=== PATIENT | female | born 1990 | race Caucasian/White ===

== ENCOUNTER 2016-10-30 22:07 | Emergency (ER) | payer OTHER ==
[2016-10-30 22:18] VITALS: TEMP 98.1
[2016-10-30] MEDS ORDERED: HYDROcodone 7.5MG/APAP 325MG 1 EA TAB PO ONE (22:41)
[2016-10-30] MEDS ORDERED: LIDOCAINE VIS-MYLANTA 30 ML UD PO ONE (22:41)
[2016-10-30] MEDS ORDERED: SODIUM CHLORIDE 0.9% 1000ML 1,000 ML IVS ONE (23:31)
[2016-10-30] MEDS ORDERED: MAGNESIUM HYDROXIDE 30 ML UD PO ONE (23:31)
[2016-10-30] MEDS ORDERED: MAGNESIUM SULFATE PREMIX 2GM 2 GM in PREMIX BAG 1 BAG IVPB ONE (23:31)
[2016-10-30] MEDS ORDERED: MAGNESIUM SULFATE PREMIX 2GM 50 ML IVPB ONE (23:36)
--- NOTE | 2016-10-30 23:41 | ED.PDOC ---
History of Present Illness - General Chief Complaint: Abdominal Pain Stated Complaint: RUQ abd pain that radiates to back, onset yesterda Time Seen by Provider: 10/30/16 22:09 Source: patient Exam Limitations: no limitations - History of Present Illness Initial Comments: the patient is a 26-year-old female presenting to the emergency room secondary to abdominal pain in the epigastric and right upper quadrant area for the last 24 hours. No history of any gallbladder problems in the past. No abdominal surgeries in the past. No difficulties with urination. Sometimes the pain radiates through to her back. It is somewhat worse with movement. It is not necessarily worse with eating. She has had some nausea but no vomiting. She has had some mild diarrhea. Timing/Duration: 24 hours Severity: moderate Improving Factors: nothing Worsening Factors: nothing Associated Symptoms: denies symptoms Allergies/Adverse Reactions: Allergies Penicillin G Allergy (Verified 10/30/16 22:18) Home Medications: Ambulatory Orders Esomeprazole Magnesium [Nexium] 40 mg PO PRN 10/30/16 Review of Systems - Review of Systems Constitutional: States: malaise EENTM: States: no symptoms reported Respiratory: States: no symptoms reported Cardiology: States: no symptoms reported Gastrointestinal/Abdominal: States: see HPI Genitourinary: States: no symptoms reported Musculoskeletal: States: back pain Skin: States: no symptoms reported Neurological: States: no symptoms reported Endocrine: States: no symptoms reported All other Systems: No Change from Baseline Past Medical History (General) - Patient Medical History Hx Seizures: No Hx Stroke: No Hx Dementia: No Hx Asthma: Yes Hx of COPD: No Hx Cardiac Disorders: No Hx Congestive Heart Failure: No Hx Pacemaker: No Hx Hypertension: No Hx Thyroid Disease: No Hx Diabetes: No Hx Gastroesophageal Reflux: No Hx Renal Disease: No Hx Cancer: No Hx of HIV: No Hx Hepatitis C: No Hx MRSA: No Surgical History: no surgical history - Vaccination History Hx Tetanus, Diphtheria Vaccination: Yes Hx Influenza Vaccination: Yes Hx Pneumococcal Vaccination: No - Social History Hx Tobacco Use: No Hx Chewing Tobacco Use: No Hx Alcohol Use: No Hx Substance Use: No Hx Substance Use Treatment: No Hx Depression: Yes Feels Threatened In Home Enviroment: No Feels Threatened In a Relationship: No Hx Physical Abuse: No Hx Emotional Abuse: No Hx Suspected Abuse: No - Female History Hx Last Menstrual Period: 11/08/15 Patient : No Expected Date of Delivery:: 01/30/13 Family Medical History - Family History Mother Family History: No Known Living Status: Still Living Hx Family Asthma: Yes Hx Family Hypertension: Yes Hx Family Diabetes: Yes Physical Exam - Physical Exam General Appearance: Alert, No apparent distress Eye Exam: bilateral normal Ears, Nose, Throat: hearing grossly normal, normal ENT inspection Neck: full range of motion, supple Respiratory: chest non-tender, lungs clear, normal breath sounds, no respiratory distress, no accessory muscle use Cardiovascular/Chest: normal peripheral pulses, regular rate, rhythm, no edema Peripheral Pulses: radial,right: 2+, radial,left: 2+, dorsalis pedis,right: 2+, dorsalis pedis,left: 2+ Gastrointestinal/Abdominal: soft, other - discomfort palpation in the epigastric and right upper quadrant. No definite rebound. Rectal Exam: deferred Back Exam: normal inspection, no CVA tenderness Extremity: normal range of motion, non-tender, normal inspection, no pedal edema , normal capillary refill Neurologic: lining setter II-XII nml as tested, no motor/sensory deficits, alert, normal mood/affect, oriented x 3 Skin Exam: normal color Comments: Vital Signs - 24 hr 10/30/16 22:10 Temperature 98.1 F Pulse Rate [ 105 H monitor] Respiratory 16 Rate Blood Pressure 116/81 [Left Arm] O2 Sat by Pulse 96 Oximetry Progress - Progress Progress: 10/30/16 23:42 the patient is a 26-year-old female presenting to the emergency room secondary to abdominal pain for the last 24 hours. Lab work is reassuring and x -ray indicates significant constipation. No evidence of infection on the lab work and vital signs do not indicate significant infection at this time. The patient does have some dehydration and is receiving a liter of IV fluids. She does have a mildly low magnesium and is receiving a dose of IV magnesium. For the constipation the patient is receiving a dose of milk of magnesia. She needs to take MiraLAX daily for the next week. If her abdominal pain is not improving with treatment of the constipation, then a right upper quadrant ultrasound may be warranted. ER warnings were given for any worsening. She should follow-up with her primary care doctor around Tuesday for reevaluation. - Results/Orders Results/Orders: abdominal series shows a large amount of stool. No obstruction. No free air is obvious. Laboratory Results - last 24 hr 10/30/16 10/30/16 10/30/16 22:40 22:45 22:45 WBC 10.4 RBC 4.76 Hgb 11.3 L Hct 35.4 L MCV 74.4 L MCH 23.7 L MCHC 32.0 L RDW 14.7 H Plt Count 284 MPV 8.4 Absolute Neuts (auto) 6.30 Absolute Lymphs (auto) 3.00 Absolute Monos (auto) 0.70 Absolute Eos (auto) 0.40 Absolute Basos (auto) 0.00 Neutrophils % 60.9 Lymphocytes % 28.7 Monocytes % 6.5 Eosinophils % 3.5 Basophils % 0.4 Normal RBC Morphology 1+hypochromia PT INR PTT (SP) Sodium 142 Potassium 3.5 L Chloride 110 Carbon Dioxide 26 Anion Gap 9.5 L BUN 13 Creatinine 1.01 BUN/Creatinine Ratio 12.9 Random Glucose 108 H Serum Osmolality 283.8 Calcium 8.7 Magnesium Total Bilirubin 0.2 AST 14 ALT 16 Alkaline Phosphatase 60 Creatine Kinase 54 CK-MB (CK-2) 0.8 CK-MB (CK-2) % Not Reportable Troponin I < 0.02 Serum Total Protein 6.9 Albumin 3.7 Globulin 3.2 Albumin/Globulin Ratio 1.2 Amylase 59 Lipase Serum HCG, Qual Urine Color Yellow Urine Appearance Sl cloudy Urine pH 6.0 Ur Specific [place] >= 1.030 Urine Protein Trace Urine Glucose (UA) Negative Urine Ketones Negative Urine Blood Moderate H Urine Nitrite Negative Urine Bilirubin Negative Urine Urobilinogen 0.2 Ur Leukocyte Esterase Negative Urine RBC 1-3 Urine WBC 5-10 H Ur Epithelial Cells 20-30 Urine Bacteria 1+ Urine Mucus Small 10/30/16 10/30/16 10/30/16 22:45 22:45 22:45 WBC RBC Hgb Hct MCV MCH MCHC RDW Plt Count MPV Absolute Neuts (auto) Absolute Lymphs (auto) Absolute Monos (auto) Absolute Eos (auto) Absolute Basos (auto) Neutrophils % Lymphocytes % Monocytes % Eosinophils % Basophils % Normal RBC Morphology PT 10.5 INR 0.930 PTT (SP) 30.2 Sodium Potassium Chloride Carbon Dioxide Anion Gap BUN Creatinine BUN/Creatinine Ratio Random Glucose Serum Osmolality Calcium Magnesium 1.7 L Total Bilirubin AST ALT Alkaline Phosphatase Creatine Kinase CK-MB (CK-2) CK-MB (CK-2) % Troponin I Serum Total Protein Albumin Globulin Albumin/Globulin Ratio Amylase Lipase 26 Serum HCG, Qual Negative Urine Color Urine Appearance Urine pH Ur Specific [place] Urine Protein Urine Glucose (UA) Urine Ketones Urine Blood Urine Nitrite Urine Bilirubin Urine Urobilinogen Ur Leukocyte Esterase Urine RBC Urine WBC Ur Epithelial Cells Urine Bacteria Urine Mucus Departure - Departure Clinical Impression: Abdominal pain Qualifiers: Abdominal location: upper abdomen, unspecified Qualified Code(s): R10.10 - Upper abdominal pain, unspecified Constipation Qualifiers: Constipation type: unspecified constipation type Qualified Code(s): K59.00 - Constipation, unspecified Disposition: Discharge to Home or Self Care Condition: Fair Departure Forms: ED Discharge - Pt. Copy, Patient Portal Self Enrollment Instructions: DI for Constipation Diet: regular diet - high-fiber low-fat Activity: increase activity as tolerated Referrals: Sari Gavin SENIOR SOFTWARE MANAGER [Primary Care Provider] - 1-2 Weeks Home Medications: Ambulatory Orders Esomeprazole Magnesium [Nexium] 40 mg PO PRN 10/30/16 Additional Instructions: the patient is a 26-year-old female presenting to the emergency room secondary to abdominal pain for the last 24 hours. Lab work is reassuring and x -ray indicates significant constipation. No evidence of infection on the lab work and vital signs do not indicate significant infection at this time. The patient does have some dehydration and is receiving a liter of IV fluids. She does have a mildly low magnesium and is receiving a dose of IV magnesium. For the constipation the patient is receiving a dose of milk of magnesia. She needs to take MiraLAX daily for the next week. If her abdominal pain is not improving with treatment of the constipation, then a right upper quadrant ultrasound may be warranted. ER warnings were given for any worsening. She should follow-up with her primary care doctor around Tuesday for reevaluation.
--- NOTE | 2016-10-30 23:46 | RAD ---
EXAM DESCRIPTION: Abdomen Series CLINICAL HISTORY: ruq pain 30 hours COMPARISON: None FINDINGS: Frontal view of the chest and supine and upright images of the abdomen were submitted. Cardiac silhouette is within normal limits. There is no focal parenchymal or pleural disease. There is no free air in the abdomen. There is rotoscoliosis of the lumbar spine. There is no evidence of bowel obstruction. IMPRESSION: No acute abnormalities. Electronically signed by: Duglas Cohen MD 10/30/2016 11:44 PM CDT
[2016-10-31 01:57] VITALS: BP 110/80; O2SAT 98
== END 2016-10-31 01:57 | disposition home or self-care (01) ==
LOC: ER 22:07
DX: K59.00 Constipation, unspecified (principal); R10.11 Right upper quadrant pain; E86.0 Dehydration
CPT/HCPCS: 36415; 74020; 80053; 81001; 82150; 82550; 82553; 83690; 83735; 84484; 84703; 85025; 85610; 85730; J3475; J7030

== ENCOUNTER 2017-01-14 01:41 | Emergency (ER) | payer SELFPAY ==
[2017-01-14] MEDS ORDERED: KETOROLAC TROMETHAMINE INJ 30 MG/ML VIAL IM ONE (02:08)
--- NOTE | 2017-01-14 02:35 | RAD ---
Procedure: XR ABDOMEN 2 VIEWS SUPINE ERECT Exam Date: 01/14/2017 Ordering Provider: Edgar Gómez Clinical Indication: ruq pain Comparison: 10/30/2016 Findings: There is no small or large bowel distention. There is no pneumoperitoneum. There are no suspicious calcifications. There is no acute skeletal abnormality. Rotoscoliosis. Impression: 1. No acute findings. Electronically signed by: Vinh Medina MD 01/14/2017 2:34 AM FINGERNAIL TECHNICIAN
[2017-01-14] MEDS ORDERED: SODIUM CHLORIDE 0.9% 1000ML 1,000 ML IVS ONE (03:26)
--- NOTE | 2017-01-14 04:01 | CT ---
EXAM DESCRIPTION: Abdomen/Pelvis w/Contrast CLINICAL HISTORY: 26 years Female, epigastric/ruq pain with microcytosis COMPARISON: CT abdomen 02/23/2015 TECHNIQUE: Contiguous axial CT images of the abdomen and pelvis were acquired after the administration of intravenous contrast. Coronal and sagittal reformatted images are provided. This exam was performed according to our departmental dose-optimization program which includes use of Automated Exposure Control, adjustment of the mA and/or kV according to patient size and/or use of iterative reconstruction technique. FINDINGS: Chest base: Tree-in-bud opacities and focal airspace consolidation is seen within the lingula. Lung bases are otherwise unremarkable. Liver: Unremarkable. Gallbladder: Multiple stones within the gallbladder. Unremarkable common bile duct. Spleen: Unremarkable. Adrenals: Unremarkable. Pancreas: Unremarkable. Right Kidney: Tiny subcentimeter hypoattenuating lesion within the right kidney, too small to characterize, likely renal cyst. There is a tiny punctate stone within the lower pole of the right kidney. Left Kidney: No renal stones or hydronephrosis. Aorta and branch vessels: Unremarkable. Lymph nodes: No lymphadenopathy. Bowels: No obstruction. Colon: No wall thickening. Appendix: Normal. Peritoneum: No free air or free fluid. Pelvic organs: Unremarkable. Bladder: Unremarkable. Bones and soft tissues: No acute osseous or soft tissue abnormalities. Subcutaneous emphysema within the right gluteal region, likely injection related. IMPRESSION: Cholelithiasis without choledocholithiasis. Lingular airspace disease concerning for endobronchial infection/pneumonia. Punctate nonobstructing right renal stone. Electronically signed by: Kendall Lainez MD 01/14/2017 3:59 AM INSTRUCTOR CREELER
--- NOTE | 2017-01-14 04:38 | RAD ---
Procedure: XR CHEST 2 VIEWS Exam Date: 01/14/2017 Ordering Provider: Edgar Gómez Clinical Indication: ruq pain, rll rales Comparison: 06/13/2008 Findings: Cardiomediastinal silhouette: Within normal limits Pulmonary vasculature : Unremarkable Aortic contour: Unremarkable Focal lung consolidation: Atelectasis and/or infiltrate in the lingula. Lungs are otherwise clear. Pleural effusion: None Pneumothorax: None Bones and soft tissues: Nonacute Impression: 1. Atelectasis and/or infiltrate in the lingula. Electronically signed by: Vinh Medina MD 01/14/2017 4:37 AM [facility]
[2017-01-14] MEDS ORDERED: cefTRIAXone SODIUM 1 GM in SODIUM CHL 0.9% 50ML MIN-BAG+ 50 ML IVPB ONE (04:44)
[2017-01-14] MEDS ORDERED: AZITHROMYCIN IV 500 MG in SODIUM CHLORIDE 0.9% 250ML 250 ML IVPB ONE (04:46)
--- NOTE | 2017-01-14 04:49 | ED.PDOC ---
History of Present Illness - General Source: patient Exam Limitations: no limitations - History of Present Illness Initial Comments: the patient is a 26-year-old female presenting to the emergency room secondary to right upper quadrant pain associated nausea and vomiting that started this morning. She did not vomit until she took some pain medications for it. Eating does make it worse. Movement does make it worse. She denies any fever. She denies any bowel or blood in her vomitus. She has had problems with constipation in the past and we did see her with a similar episode 3 months ago that seemed to respond to treatment for constipation. At that time there was no elevation in liver function tests were white blood cell count and the pain was a little more diffuse. Today the pain is really in the right upper quadrant.he patient did have a significant cough with some shortness of breath last week. Timing/Duration: 24 hours, intermittent Severity: moderate Improving Factors: nothing Worsening Factors: eating Associated Symptoms: cough, loss of appetite, malaise, nausea/vomiting <Edgar Gómez - Last Filed: 01/14/17 04:47> <Mihir Rodriguez - Last Filed: 01/14/17 10:38> - General Chief Complaint: Abdominal Pain Stated Complaint: abd pain Time Seen by Provider: 01/14/17 01:53 - History of Present Illness Allergies/Adverse Reactions: Allergies Penicillin G Allergy (Verified 10/30/16 22:18) Home Medications: Ambulatory Orders Esomeprazole Magnesium [Nexium] 40 mg PO PRN 10/30/16 Azithromycin 500 mg PO DAILY #5 tab 01/14/17 Famotidine 20 mg PO BID #60 tab 01/14/17 Ferrous Gluconate [Ferrotabs] 240 mg PO BID #120 tab 01/14/17 Review of Systems - Review of Systems Constitutional: States: malaise EENTM: States: no symptoms reported Respiratory: States: cough Cardiology: States: no symptoms reported Gastrointestinal/Abdominal: States: abdominal pain, nausea, vomiting Genitourinary: States: no symptoms reported Musculoskeletal: States: no symptoms reported Skin: States: no symptoms reported Neurological: States: no symptoms reported Endocrine: States: no symptoms reported All other Systems: No Change from Baseline <Edgar Gómez - Last Filed: 01/14/17 04:47> Past Medical History (General) - Patient Medical History Hx Seizures: No Hx Stroke: No Hx Dementia: No Hx Asthma: Yes Hx of COPD: No Hx Cardiac Disorders: No Hx Congestive Heart Failure: No Hx Pacemaker: No Hx Hypertension: No Hx Thyroid Disease: No Hx Diabetes: No Hx Gastroesophageal Reflux: No Hx Renal Disease: No Hx Cancer: No Hx of HIV: No Hx Hepatitis C: No Hx MRSA: No Surgical History: no surgical history - Vaccination History Hx Tetanus, Diphtheria Vaccination: Yes Hx Influenza Vaccination: Yes Hx Pneumococcal Vaccination: No - Social History Hx Tobacco Use: No Hx Chewing Tobacco Use: No Hx Alcohol Use: No Hx Substance Use: No Hx Substance Use Treatment: No Hx Depression: Yes Hx Physical Abuse: No Hx Emotional Abuse: No Hx Suspected Abuse: No - Female History Hx Last Menstrual Period: 11/08/15 Patient : No Expected Date of Delivery:: 01/30/13 <Edgar Gómez - Last Filed: 01/14/17 04:47> Family Medical History - Family History Mother Family History: No Known Living Status: Still Living Hx Family Asthma: Yes Hx Family Hypertension: Yes Hx Family Diabetes: Yes <Edagr Gómez - Last Filed: 01/14/17 04:47> Physical Exam - Physical Exam General Appearance: Alert, Anxious, Other - the patient is obviously hurting Eye Exam: bilateral normal Ears, Nose, Throat: hearing grossly normal, normal ENT inspection, normal pharynx Neck: full range of motion, supple, normal inspection Respiratory: chest non-tender, no respiratory distress, no accessory muscle use , rhonchi - right lower lobe primarily Cardiovascular/Chest: normal peripheral pulses, regular rate, rhythm, no edema Peripheral Pulses: radial,right: 2+, radial,left: 2+, dorsalis pedis,right: 2+, dorsalis pedis,left: 2+ Gastrointestinal/Abdominal: soft, other - the patient does havesignificant right upper quadrant discomfort to palpation with some guarding Rectal Exam: deferred Back Exam: normal inspection, no vertebral tenderness, other - the patient does have some right-sided costovertebral angle tenderness Extremity: normal range of motion, non-tender, normal inspection, no pedal edema , normal capillary refill Neurologic: gas charger II-XII nml as tested, no motor/sensory deficits, alert, oriented x 3 Skin Exam: normal color Comments: Vital Signs - 24 hr 1201/14/17 01/14/17 01:57 02:41 03:41 Temperature 98.6 F Pulse Rate [ 78 74 66 left] Respiratory 18 18 18 Rate Blood Pressure 133/85 124/76 119/74 [left] O2 Sat by Pulse 98 97 98 Oximetry <Edgar Gómez - Last Filed: 01/14/17 04:47> Progress - Progress Progress: 01/14/17 04:54 the patient is a 26-year-old female presenting to the emergency room with symptoms of right upper quadrant pain and associated nausea and vomiting. She also has a significant cough that is actually letting up since last week. The patient is found to have at least 2 different problems, possibly 3. The patient has a significant anemia that is likely iron deficiency anemia that seems to be getting worse over time based on her MCV. The patient will need outpatient testing for this including a complete iron panel and she will need to be set up for an upper endoscopy. It is possible that significant gastritis or duodenitis may be causing the iron deficiency and the pain seen here today. for this likelihood she will be placed on Pepcid twice daily for 1 month as well as be started on an oral iron supplement. Outpatient testing for Helicobacter pylori would be in line as well. The patient also has evidence of pneumonia on clinical exam and on the CT scan. She is being given a dose of Rocephin and azithromycin each here and we will plan at least on her being on azithromycin as an outpatient for the next 5 days. The patient is not oxygen dependent and does not need to be admitted for this small pneumonia at this time. The patient's current clinical condition is however highly suspicious for symptomatic gallbladder disease. For now I'm hydrating the patient and going to make the patient nothing by mouth with the exception of water for an ultrasound in the morning. I will plan on contacting Dr. Villalobos, our general surgeon in the morning to evaluate the patient for his opinion. CT scan does not indicate any common bile duct dilation nor are there an elevation of her liver function tests on the blood work. There is no pericholecystic fluid and no obvious gallbladder wall thickening on the CT scan either. However, location and clinical nature of the pain or highly suspicious for pain related to her significant gallstones as seen on the CT scan. She has received 1 dose of Toradol so far. We'll continue monitoring and obtain the above. - Results/Orders Results/Orders: Laboratory Results - last 24 hr 01/14/17 01/14/17 01/14/17 02:15 02:15 02:15 WBC 11.1 H RBC 5.27 Hgb 11.2 L Hct 36.1 MCV 68.6 L MCH 21.2 L MCHC 30.9 L RDW 16.8 H Plt Count 441 H MPV 8.6 Absolute Neuts (auto) 6.10 Absolute Lymphs (auto) 3.30 Absolute Monos (auto) 0.80 Absolute Eos (auto) 0.80 H Absolute Basos (auto) 0.10 Neutrophils % 55.2 Lymphocytes % 29.8 Monocytes % 7.3 Eosinophils % 7.1 H Basophils % 0.6 Normal RBC Morphology 4+microcytosis Sodium 140 Potassium 4.0 Chloride 107 Carbon Dioxide 27 Anion Gap 10.0 L BUN 10 Creatinine 0.60 BUN/Creatinine Ratio 16.7 Random Glucose 99 Serum Osmolality 278.5 Calcium 9.1 Total Bilirubin < 0.2 L AST 16 ALT 44 Alkaline Phosphatase 44 Serum Total Protein 7.2 Albumin 3.5 Globulin 3.7 H Albumin/Globulin Ratio 0.9 L Amylase 55 Lipase 23 Serum HCG, Qual Negative Urine Color Urine Appearance Urine pH Ur Specific [place] Urine Protein Urine Glucose (UA) Urine Ketones Urine Blood Urine Nitrite Urine Bilirubin Urine Urobilinogen Ur Leukocyte Esterase Urine RBC Urine WBC Ur Epithelial Cells Urine Bacteria 01/14/17 02:15 WBC RBC Hgb Hct MCV MCH MCHC RDW Plt Count MPV Absolute Neuts (auto) Absolute Lymphs (auto) Absolute Monos (auto) Absolute Eos (auto) Absolute Basos (auto) Neutrophils % Lymphocytes % Monocytes % Eosinophils % Basophils % Normal RBC Morphology Sodium Potassium Chloride Carbon Dioxide Anion Gap BUN Creatinine BUN/Creatinine Ratio Random Glucose Serum Osmolality Calcium Total Bilirubin AST ALT Alkaline Phosphatase Serum Total Protein Albumin Globulin Albumin/Globulin Ratio Amylase Lipase Serum HCG, Qual Urine Color Yellow Urine Appearance Clear Urine pH 6.5 Ur Specific [place] 1.015 Urine Protein Negative Urine Glucose (UA) Negative Urine Ketones Negative Urine Blood Small H Urine Nitrite Negative Urine Bilirubin Negative Urine Urobilinogen 0.2 Ur Leukocyte Esterase Small H Urine RBC 1-3 Urine WBC 3-5 H Ur Epithelial Cells 3-5 Urine Bacteria 1+ x-ray of abdomen shows a moderate amount of stool. No obstruction. Free air. Calcified stones are seen in the area of the gallbladder. CT scan of the abdomen and pelvis show a few small nonobstructing kidney stones. She does have significant gallbladder stones but does not appear to have any pericholecystic fluid or gallbladder wall thickening. The common bile duct is within normal limits. No other acute pathology is noted.she does have changes consistent with a small lingular pneumonia <Edgar Gómez L - Last Filed: 01/14/17 04:47> - EKG/XRAY/CT Comments: abdominal sono-acute calculus cholecystytis <Mihir Rodriguez R - Last Filed: 01/14/17 10:38> Departure <Edgar Gómez L - Last Filed: 01/14/17 04:47> - Departure Time of Disposition: 10:35 <Mihir Rodriguez - Last Filed: 01/14/17 10:38> - Departure Clinical Impression: Lingular pneumonia Abdominal pain Qualifiers: Abdominal location: right upper quadrant Qualified Code(s): R10.11 - Right upper quadrant pain Iron deficiency anemia Qualifiers: Iron deficiency anemia type: unspecified iron deficiency Qualified Code(s): D50.9 - Iron deficiency anemia, unspecified Cholecystitis, acute with cholelithiasis Qualifiers: Cholelithiasis location: gallbladder Biliary obstruction: without biliary obstruction Qualified Code(s): K80.00 - Calculus of gallbladder with acute cholecystitis without obstruction Disposition: Transfer to Hospital Condition: Fair Departure Forms: Patient Portal Self Enrollment Instructions: Pneumonia-Adult, DI for Iron Deficiency Anemia-Adult Referrals: Sari Gavin, [employer] CHOPPER HAND [Primary Care Provider] - 1-2 Weeks Prescriptions: Azithromycin 500 mg PO DAILY #5 tab Famotidine 20 mg PO BID #60 tab Ferrous Gluconate [Ferrotabs] 240 mg PO BID #120 tab Home Medications: Ambulatory Orders Esomeprazole Magnesium [Nexium] 40 mg PO PRN 10/30/16 Azithromycin 500 mg PO DAILY #5 tab 01/14/17 Famotidine 20 mg PO BID #60 tab 01/14/17 Ferrous Gluconate [Ferrotabs] 240 mg PO BID #120 tab 01/14/17 Transfer to Outside Facility - Transfer Information Accepting Provider:: Dr. Siddiqi-surgeon/Dr. Bertha Barriga -ER Md Accepting Facility: [facility] Reason for Transfer: required specialist not available <Mihir Rodriguez - Last Filed: 01/14/17 10:38>
[2017-01-14] MEDS ORDERED: cefTRIAXone SODIUM 1 GM VIAL ONE (04:54)
[2017-01-14] MEDS ORDERED: AZITHROMYCIN IV 500 MG VIAL IVPB ONE (04:55)
[2017-01-14] MEDS ORDERED: SODIUM CHLORIDE 0.9% 250ML 250 ML ONE (04:55)
[2017-01-14] MEDS ORDERED: SODIUM CHL 0.9% 50ML MIN-BAG+ 50 ML IVPB ONE (04:55)
[2017-01-14] MEDS ORDERED: levoFLOXacin 500MG IV 500 MG in PREMIX BAG 1 BAG IVPB ONE (07:39)
--- NOTE | 2017-01-14 10:03 | US ---
EXAM DESCRIPTION: Abdomen,Limited CLINICAL HISTORY: ruq pain, gallstones COMPARISON: CT abdomen pelvis January 14, 2017. TECHNIQUE: Routine sonographic images of the right upper quadrant of the abdomen were acquired and submitted for review. FINDINGS: Liver: Size- normal Echogenicity- normal Mass- none Bile ducts- no intrahepatic ductal dilatation is demonstrated. Common bile duct is normal seen to comment on. Gallbladder: Gallbladder wall thickening with pericholecystic fluid is present. Multiple gallstones are noted with the largest measuring 1.8 cm. Larger gallstone is nonmobile near the neck. Pancreas: head and body appear normal; tail obscured by bowel gas Right kidney: normal Aorta & Inferior vena cava: visualized portions appear normal Ascites: none IMPRESSION: Acute calculus cholecystitis. Electronically signed by: John Gonzalez MD 01/14/2017 10:02 AM [facility]
[2017-01-14] MEDS ORDERED: MORPHINE SULFATE INJ 10 MG/ML VIAL IV ONE (10:37)
[2017-01-14] MEDS ORDERED: SODIUM CHLORIDE 0.9% 1000ML 1,000 ML IVS PRN (10:46)
[2017-01-14 11:37] VITALS: BP 103/67; TEMP 97.9; O2SAT 97
== END 2017-01-14 11:50 | disposition short-term general hospital (02) ==
LOC: ER 01:41
DX: J18.8 Other pneumonia, unspecified organism (principal); D50.9 Iron deficiency anemia, unspecified; K80.00 Calculus of gallbladder with acute cholecystitis without obstruction; Z88.0 Allergy status to penicillin; Z88.8 Allergy status to other drugs, medicaments and biological substances
CPT/HCPCS: 36415; 71020; 74010; 74177; 76775; 80053; 81001; 82150; 83690; 84703; 85025; 87040; 87086; J0456; J0696; J1885; J7030; J7050

== ENCOUNTER 2017-10-25 11:33 | Emergency (ER) | payer SELFPAY ==
[2017-10-25] MEDS ORDERED: SODIUM CHLORIDE 0.9% 1000ML 1,000 ML IVS ONE (12:04)
[2017-10-25] MEDS ORDERED: ONDANSETRON ODT 8 MG TAB SL ONE (12:04)
--- NOTE | 2017-10-25 12:07 | ED.PDOC ---
History of Present Illness - General Chief Complaint: Abdominal Pain Stated Complaint: Abdominal discomfort, nausea/vomiting Time Seen by Provider: 10/25/17 12:03 Information Source: patient Exam Limitations: no limitations - History of Present Illness Initial Comments: patient is a 26-year-old at 20 weeks by stated URSZULA who presents for 1 day history of abdominal pain, nausea, vomiting, and diarrhea. Patient states she felt a little bit ill last night but had no nausea or vomiting. This morning at 1 AM she awoke with cramping of the entire abdominal cavity that came and went very similar to when she had contractions. She has no vaginal bleeding but had severe nausea and vomiting this morning as well as some loose stools. She has had some epigastric and right upper quadrant abdominal discomfort and pain as well. Patient denies any fever, chills, cough or cold symptoms. Her other 2 pregnancies as well as this one were unremarkable. She has no past history of hypertension, liver dysfunction, or preeclampsia. Patient states both babies were vaginally delivered at term. Patient has a past medical history significant only for cholecystectomy but no chronic medical disorders and she is taking her female vitamins. She is a smoke, drink , or take illicit substances. Good movement this morning is reported feel heart tones are 150s here in the emergency room. Abdominal Pain Onset Location: generalized abdomen Pain Radiation: no radiation Quality: moderate, cramping, waxing/waning Timing/Duration: 7-24 hours Improving Factors: nothing Worsening Factors: eating Associated Symptoms: diarrhea, nausea/vomiting Review of Systems - Review of Systems Constitutional: States: no symptoms reported, weakness. Denies: diaphoresis, fever EENTM: Denies: no symptoms reported, eye pain, ear pain, ear discharge, throat swelling Respiratory: States: no symptoms reported. Denies: cough, short of breath, wheezing Cardiology: States: no symptoms reported. Denies: chest pain, edema, palpitations Gastrointestinal/Abdominal: States: see HPI Genitourinary: Denies: no symptoms reported Musculoskeletal: Denies: no symptoms reported Past Medical History (General) - Patient Medical History Hx Seizures: No Hx Stroke: No Hx Dementia: No Hx Asthma: Yes Hx of COPD: No Hx Cardiac Disorders: No Hx Congestive Heart Failure: No Hx Pacemaker: No Hx Hypertension: No Hx Thyroid Disease: No Hx Diabetes: No Hx Gastroesophageal Reflux: No Hx Renal Disease: No Hx Cancer: No Hx of HIV: No Hx Hepatitis C: No Hx MRSA: No Surgical History: cholecystectomy - Vaccination History Hx Tetanus, Diphtheria Vaccination: Yes Hx Influenza Vaccination: Yes - 2016 Hx Pneumococcal Vaccination: No - Social History Hx Tobacco Use: Yes - Quit 2017 Hx Chewing Tobacco Use: No Hx Alcohol Use: No Hx Substance Use: No Hx Substance Use Treatment: No Hx Depression: Yes Hx Physical Abuse: No Hx Emotional Abuse: No Hx Suspected Abuse: No - Female History Patient is a Female of Child Bearing Age (10 -59 yrs old): Yes Hx Last Menstrual Period: 11/08/15 Patient : Yes Expected Date of Delivery:: 03/10/18 Family Medical History - Family History Mother Family History: No Known Living Status: Still Living Hx Family Asthma: Yes Hx Family Hypertension: Yes Hx Family Diabetes: Yes Physical Exam - Physical Exam General Appearance: Alert, Ill Appearing Eyes, Ears, Nose, Throat Exam: PERRL/EOMI, normal ENT inspection, TMs normal, pharynx normal, other - dry mucous membranes Neck: non-tender, full range of motion, supple, normal inspection Respiratory: chest non-tender, lungs clear, normal breath sounds, no respiratory distress Cardiovascular/Chest: normal peripheral pulses, regular rate, rhythm, no murmur Gastrointestinal/Abdominal: normal bowel sounds, soft, other - mildly tender to palpation diffusely with no guarding no rebound Back Exam: normal inspection Extremity: normal range of motion, non-tender Neurologic: alert, oriented x 3 Progress - Results/Orders Results/Orders: Laboratory Results WBC 14.7 K/mm3 (4.8-10.8) H 10/25/17 12:20 RBC 4.97 M/mm3 (4.20-5.40) 10/25/17 12:20 Hgb 11.9 gm/dL (12.0-16.0) L 10/25/17 12:20 Hct 36.6 % (36.0-47.0) 10/25/17 12:20 MCV 73.6 fl (81.0-99.0) L 10/25/17 12:20 MCH 23.9 pg (27.0-31.0) L 10/25/17 12:20 MCHC 32.6 g/dL (33.0-37.0) L 10/25/17 12:20 RDW 18.2 % (11.5-14.5) H 10/25/17 12:20 Plt Count 245 K/mm3 (130-400) 10/25/17 12:20 MPV 9.0 fl (7.40-10.4) 10/25/17 12:20 Absolute Neuts (auto) 12.90 K/uL (1.8-6.8) H 10/25/17 12:20 Absolute Lymphs (auto) 1.00 K/uL (1.0-3.4) 10/25/17 12:20 Absolute Monos (auto) 0.70 K/uL (0.2-0.8) 10/25/17 12:20 Absolute Eos (auto) 0.00 K/uL (0.0-0.4) 10/25/17 12:20 Absolute Basos (auto) 0.00 K/uL (0.0-0.1) 10/25/17 12:20 Neutrophils % 87.8 % (42.0-78.0) H 10/25/17 12:20 Lymphocytes % 7.0 % (20.0-50.0) L 10/25/17 12:20 Monocytes % 4.7 % (2.0-9.0) 10/25/17 12:20 Eosinophils % 0.2 % (1.0-5.0) L 10/25/17 12:20 Basophils % 0.3 % (0.0-2.0) 10/25/17 12:20 RBC Morphology 1+aniso 1+hypochromia Plts litzy adequate 10/25/17 12:20 RBC Morphology 1+aniso 1+hypochromia Plts litzy adequate 10/25/17 12:20 RBC Morphology 1+aniso 1+hypochromia Plts litzy adequate 10/25/17 12:20 Sodium 139 mmol/L (135-145) 10/25/17 12:20 Potassium 3.3 mmol/L (3.6-5.0) L 10/25/17 12:20 Chloride 105 mmol/L (101-111) 10/25/17 12:20 Carbon Dioxide 22 mmol/L (21-31) 10/25/17 12:20 Anion Gap 15.3 (12-18) 10/25/17 12:20 BUN 9 mg/dL (7-18) 10/25/17 12:20 Creatinine 0.41 mg/dL (0.6-1.3) L 10/25/17 12:20 BUN/Creatinine Ratio 22.0 (10-20) H 10/25/17 12:20 Random Glucose 87 mg/dL (70-105) 10/25/17 12:20 Serum Osmolality 275.6 mOsm/L (275-295) 10/25/17 12:20 Uric Acid 7.3 mg/dL (2.6-7.2) H 10/25/17 12:20 Calcium 8.6 mg/dL (8.4-10.2) 10/25/17 12:20 Total Bilirubin 0.4 mg/dL (0.2-1.0) 10/25/17 12:20 AST 62 IU/L (10-42) H 10/25/17 12:20 ALT 56 IU/L (10-60) 10/25/17 12:20 Alkaline Phosphatase 61 IU/L (42-121) 10/25/17 12:20 Serum Total Protein 7.0 gm/dL (6.4-8.2) 10/25/17 12:20 Albumin 3.1 g/dl (3.2-5.5) L 10/25/17 12:20 Globulin 3.9 gm/dL (2.3-3.5) H 10/25/17 12:20 Albumin/Globulin Ratio 0.8 (1.1-1.9) L 10/25/17 12:20 Urine Color Yellow (Yellow) 10/25/17 14:50 Urine Appearance Cloudy (Clear) 10/25/17 14:50 Urine pH 7.0 (4.5-7.8) 10/25/17 14:50 Ur Specific [place] 1.020 (1.005-1.030) 10/25/17 14:50 Urine Protein Negative mg/dL 10/25/17 14:50 Urine Glucose (UA) Negative mg/dL (Negative) 10/25/17 14:50 Urine Ketones >=160 mg/dL (NEGATIVE) 10/25/17 14:50 Urine Blood Trace-intact (Negative) H 10/25/17 14:50 Urine Nitrite Negative 10/25/17 14:50 Urine Bilirubin Negative (NEGATIVE) 10/25/17 14:50 Urine Urobilinogen 0.2 mg/dL (0.2-1.0) 10/25/17 14:50 Ur Leukocyte Esterase Moderate (Negative) H 10/25/17 14:50 Urine RBC 1-3 /hpf 10/25/17 14:50 Urine WBC 1-3 /hpf 10/25/17 14:50 Ur Epithelial Cells 10-20 /hpf 10/25/17 14:50 Amorphous Sediment 2+ 10/25/17 14:50 Urine Bacteria 1+ 10/25/17 14:50 Urine Mucus Large 10/25/17 14:50 Patient is much better after IVF and zofran. Discussed results with patient including UA with most likely contamination (neg nitrite and no symptoms), increased uric acid, normal/mild hepatomegaly, and ALT that is just a little high. She has no headache, vision change, itching, edema, or blood pressure change. Exam is consistent with AGE. However, with patient's we have educated her on ecclampsia precautions and HEELP syndrome. We have advised her to return with any worsening, return of pain, vision change, headache, or vaginal bleeding. She has no contractions or pain now. She is to follow up with her OB in the morning and consider rechecking labs. We will give her a copy of test results today to take with her. Departure - Departure Clinical Impression: AGE (acute gastroenteritis) Qualifiers: Weeks of gestation: 20 weeks Qualified Code(s): Z3A.20 - 20 weeks gestation of Disposition: Discharge to Home or Self Care Condition: Good Departure Forms: ED Discharge - Pt. Copy, Patient Portal Self Enrollment Instructions: DI for Abdominal Pain-Adult Referrals: Sari Gavin NP [Primary Care Provider] - 1-2 Weeks Additional Instructions: follow up tomorrow with OB and take labs from today for follow up . Return to ER/call OB for return of abdominal pain, intractable emesis, headache, swelling , vision change, or severe itching.
--- NOTE | 2017-10-25 14:16 | US ---
EXAM DESCRIPTION: Abdomen,Limited: ULTRASOUND. CLINICAL HISTORY: RUQ pain with s/p valeriano ? Liver . 20 weeks IUP. COMPARISON: Limited ultrasound abdomen 01/14/2017. TECHNIQUE: Transabdominal scannin-dimensional and Doppler modes. FINDINGS: Gallbladder: Surgically removed. No fluid in the gallbladder fossa. Non-tender with transducer pressure. Common bile duct: caliber 5.4 mm within normal limits. Liver: normal echogenicity; contour liver capsule smooth where seen. No fluid around the liver. Intrahepatic biliary ducts normal caliber. Doppler hepatopedal flow and normal caliber portal vein, 9.2 mm... Long axis right lobe 17.3 cm. Pancreas: normal size and echogenicity. Duct not seen. Proximal abdominal aorta: 1.5 cm.. IVC: visualized and normal caliber. Right kidney: long axis measures 11.0 cm. Normal cortical Echogenicity. 11 mm cortical thickness. Mild right hydronephrosis IMPRESSION: 1. Borderline hepatomegaly with normal echogenicity, normal ducts in vascularity. Smooth capsule with no ascites. Normal caliber common bile duct. No fluid in the gallbladder fossa. 2. Trace right hydronephrosis. Probably related to intrauterine . Minimal cortical thinning is probably physiologic. Electronically signed by: Karan Feritas MD 10/25/2017 2:15 PM CDT
[2017-10-25 14:18] VITALS: O2SAT 99
[2017-10-25 15:45] VITALS: BP 123/74; TEMP 98.4
== END 2017-10-25 15:50 | disposition home or self-care (01) ==
LOC: ER 11:33
DX: O99.612 Diseases of the digestive system complicating pregnancy, second trimester (principal); K52.9 Noninfective gastroenteritis and colitis, unspecified; O99.512 Diseases of the respiratory system complicating pregnancy, second trimester; J45.909 Unspecified asthma, uncomplicated; O99.342 Other mental disorders complicating pregnancy, second trimester; F32.9 Major depressive disorder, single episode, unspecified; Z3A.20 20 weeks gestation of pregnancy; Z87.891 Personal history of nicotine dependence
CPT/HCPCS: 36415; 76775; 80053; 81001; 84550; 85025; J7030

== ENCOUNTER 2017-12-30 20:47 | Emergency (ER) | payer MEDICAID ==
--- NOTE | 2017-12-30 21:06 | ED.PDOC ---
History of Present Illness - General Chief Complaint: Upper Extremity Injury Stated Complaint: rt shoulder and hand pain Time Seen by Provider: 12/30/17 21:02 Source: patient Exam Limitations: no limitations - History of Present Illness Initial Comments: Pooja Landis 27 y/o female stated that she stepped on a toy then fall but was able to braced her fall with outstretching her right hand.Then after incident had pain on right hand ,wrist and shoulder.Denies falling on her hips or abdomen.Stated she is 30 w EGA with regular care .Denies abdominal pain,contraction,vaginal bleeding. Occurred: just prior to arrival Pain - Upper Extremity: moderate: Shoulder, right, Wrist, right, Hand, right Method of Injury: fell Improving Factors: rest Worsening Factors: movement Associated Symptoms: pain Allergies/Adverse Reactions: Allergies Penicillin G Allergy (Verified 10/25/17 11:43) Hives Review of Systems - Review of Systems Musculoskeletal: States: see HPI, joint pain - shoulder right, other - right hand All other Systems: Reviewed and Negative, No Change from Baseline Past Medical History (General) - Patient Medical History Hx Seizures: No Hx Stroke: No Hx Dementia: No Hx Asthma: Yes Hx of COPD: No Hx Cardiac Disorders: No Hx Congestive Heart Failure: No Hx Pacemaker: No Hx Hypertension: No Hx Thyroid Disease: No Hx Diabetes: No Hx Gastroesophageal Reflux: No Hx Renal Disease: No Hx Cancer: No Hx of HIV: No Hx Hepatitis C: No Hx MRSA: No Surgical History: cholecystectomy - Vaccination History Hx Tetanus, Diphtheria Vaccination: Yes Hx Influenza Vaccination: Yes - 2017 Hx Pneumococcal Vaccination: No - Social History Hx Tobacco Use: Yes - Quit 2017 Hx Chewing Tobacco Use: No Hx Alcohol Use: No Hx Substance Use: No Hx Substance Use Treatment: No Hx Depression: Yes Hx Physical Abuse: No Hx Emotional Abuse: No Hx Suspected Abuse: No - Female History Hx Last Menstrual Period: 11/08/15 Patient : Yes Expected Date of Delivery:: 03/10/18 Family Medical History - Family History Mother Family History: No Known Living Status: Still Living Hx Family Asthma: Yes Hx Family Hypertension: Yes Hx Cardiac Disease: Yes - dad Hx Family Diabetes: Yes - dad Physical Exam - Physical Exam General Appearance: Alert, Comfortable, No apparent distress Eyes, Ears, Nose, Throat Exam: normal ENT inspection Neck: non-tender, full range of motion, supple, normal inspection Cardiovascular/Respiratory: regular rate, rhythm, no M/R/G, normal peripheral pulses, no JVD Abdominal Exam: other - gravid uterus FHR-160/min Back Exam: normal inspection, no CVA tenderness, no vertebral tenderness Shoulder Exam: limited ROM - painful right, soft tissue tenderness - right shoulder Elbow/Forearm Exam: normal inspection, non-tender, no evidence of injury Wrist Exam: limited ROM - flexion /extension right wrist, soft tissue tenderness - right shoulder Hand Exam: bone tenderness - metacarpal bone right hand Progress - Progress Progress: 12/30/17 21:39 Vital Signs - 24 hr 12/30/17 21:02 Temperature 97.7 F Pulse Rate [ 106 H left] Respiratory 20 Rate Blood Pressure 125/77 [left] O2 Sat by Pulse 96 Oximetry 12/30/17 21:40 Discuss X ray report with patient that no broken bones /radiologist - EKG/XRAY/CT XRAY: right shoulder and right wrist -no fracture /radiologist Departure - Departure Clinical Impression: Fall Qualifiers: Encounter type: initial encounter Qualified Code(s): W19.XXXA - Unspecified fall, initial encounter Sprain of shoulder, right Qualifiers: Encounter type: initial encounter Shoulder sprain type: unspecified sprain Qualified Code(s): S43.401A - Unspecified sprain of right shoulder joint, initial encounter Right wrist sprain Qualifiers: Encounter type: initial encounter Qualified Code(s): S63.501A - Unspecified sprain of right wrist, initial encounter Time of Disposition: 21:37 Disposition: Discharge to Home or Self Care Condition: Fair Departure Forms: ED Discharge - Pt. Copy, Patient Portal Self Enrollment Instructions: Wrist Sprain (DC), Shoulder Sprain (DC) Referrals: Sari Gavin NP [Primary Care Provider] - 1-2 Weeks Additional Instructions: May take Tylenol 500 mg every 6 hours for pain;follow up with primary Md 04 Jan 2018
--- NOTE | 2017-12-30 21:18 | RAD ---
EXAM DESCRIPTION: Wrist,Right 3 Views CLINICAL HISTORY: 27 years Female, fell, landed on rt shoulder COMPARISON: None. FINDINGS: No fracture or dislocation. Soft tissues are unremarkable. IMPRESSION: No acute abnormality. Electronically signed by: Reid Downs DO 12/30/2017 9:16 PM [facility]
--- NOTE | 2017-12-30 21:18 | RAD ---
EXAM DESCRIPTION: Shoulder,Right 2 or More Views CLINICAL HISTORY: 27 years Female, fell, landed on rt shoulder COMPARISON: None. FINDINGS: No fracture or dislocation. Soft tissues are unremarkable. IMPRESSION: No acute abnormality. Electronically signed by: Reid Downs DO 12/30/2017 9:17 PM [facility]
[2017-12-30] MEDS ORDERED: HYDROcodone 7.5MG/APAP 325MG 1 EA TAB PO ONE (21:36)
[2017-12-30 22:07] VITALS: BP 129/87; TEMP 97.8; O2SAT 97
== END 2017-12-30 22:07 | disposition home or self-care (01) ==
LOC: ER 20:47
DX: O99.89 Other specified diseases and conditions complicating pregnancy, childbirth and the puerperium (principal); S43.401A Unspecified sprain of right shoulder joint, initial encounter; S63.501A Unspecified sprain of right wrist, initial encounter; O99.513 Diseases of the respiratory system complicating pregnancy, third trimester; O99.343 Other mental disorders complicating pregnancy, third trimester; J45.909 Unspecified asthma, uncomplicated; F32.9 Major depressive disorder, single episode, unspecified; W18.39XA Other fall on same level, initial encounter; Z87.891 Personal history of nicotine dependence; Z3A.30 30 weeks gestation of pregnancy; Z88.0 Allergy status to penicillin

== ENCOUNTER 2018-03-04 22:54 | Emergency (ER) | payer MEDICAID ==
--- NOTE | 2018-03-04 23:38 | ED.PDOC ---
History of Present Illness - General Chief Complaint: INSTRUCTIONAL TECHNOLOGIST Problem Stated Complaint: contractions every 6-8mins Time Seen by Provider: 03/04/18 23:36 Source: patient Exam Limitations: no limitations - History of Present Illness Initial Comments: Patient is a at 39.5 by US who presents with contractions every 5-6 minutes. She was scheduled to be induced at 40 weeks. She says that she has had hypertension during this but no other complications. Previous deliveries were vaginal. No vaginal discharges. No other complaints. Timing/Duration: 1 hour Severity: moderate Improving Factors: nothing Worsening Factors: nothing Associated Symptoms: denies symptoms Allergies/Adverse Reactions: Allergies Penicillin G Allergy (Verified 10/25/17 11:43) Hives Review of Systems - Review of Systems Constitutional: States: no symptoms reported EENTM: States: no symptoms reported Respiratory: States: no symptoms reported Cardiology: States: no symptoms reported Gastrointestinal/Abdominal: States: no symptoms reported Genitourinary: States: see HPI Musculoskeletal: States: no symptoms reported Skin: States: no symptoms reported Neurological: States: no symptoms reported Endocrine: States: no symptoms reported Hematologic/Lymphatic: States: no symptoms reported Past Medical History (General) - Patient Medical History Hx Seizures: No Hx Stroke: No Hx Dementia: No Hx Asthma: Yes Hx of COPD: No Hx Cardiac Disorders: No Hx Congestive Heart Failure: No Hx Pacemaker: No Hx Hypertension: Yes Hx Thyroid Disease: No Hx Diabetes: No Hx Gastroesophageal Reflux: Yes Hx Renal Disease: No Hx Cancer: No Hx of HIV: No Hx Hepatitis C: No Hx MRSA: No Surgical History: cholecystectomy - Vaccination History Hx Tetanus, Diphtheria Vaccination: Yes Hx Influenza Vaccination: Yes - 2016 Hx Pneumococcal Vaccination: No - Social History Hx Tobacco Use: Yes - Quit 2017 Hx Chewing Tobacco Use: No Hx Alcohol Use: No Hx Substance Use: No Hx Substance Use Treatment: No Hx Depression: Yes Hx Physical Abuse: No Hx Emotional Abuse: No Hx Suspected Abuse: No - Female History Patient is a Female of Child Bearing Age (10 -59 yrs old): Yes Hx Last Menstrual Period: 11/08/15 Patient : Yes Expected Date of Delivery:: 03/10/18 Hx Gestational Age: 39 - Triage Comment ED Triage Comment: G4,P2,AB1 Family Medical History - Family History Mother Family History: No Known Living Status: Still Living Hx Family Asthma: Yes Hx Family Hypertension: Yes Hx Cardiac Disease: Yes - dad Hx Family Diabetes: Yes - dad Physical Exam - Physical Exam General Appearance: Alert Respiratory: lungs clear, normal breath sounds Cardiovascular/Chest: normal peripheral pulses, regular rate, rhythm, no edema Gastrointestinal/Abdominal: normal bowel sounds, non tender, soft Comments: Pelvic exam: Cervix 40% effaced, anterior, -2 station, 1-2cm dilation. FHTs 136. Progress - Progress Progress: 03/04/18 23:49 Dr. Smith was notified and agreed to see the [facility] at [facility] [place]. Patient elected to go by ambulance. Departure - Departure Clinical Impression: Disposition: Transfer to Hospital Condition: Good Departure Forms: ED Discharge - Pt. Copy, Patient Portal Self Enrollment Diet: other - as per hospitalist Activity: other - as per your primary doctor Referrals: Sari Gavin NP [Primary Care Provider] - 1-2 Weeks
[2018-03-04 23:47] VITALS: BP 111/78; TEMP 98.7; O2SAT 98
== END 2018-03-05 00:15 | disposition short-term general hospital (02) ==
LOC: ER 22:54
DX: Z34.83 Encounter for supervision of other normal pregnancy, third trimester (principal); O13.3 Gestational [pregnancy-induced] hypertension without significant proteinuria, third trimester; O99.513 Diseases of the respiratory system complicating pregnancy, third trimester; J45.909 Unspecified asthma, uncomplicated; O99.613 Diseases of the digestive system complicating pregnancy, third trimester; K21.9 Gastro-esophageal reflux disease without esophagitis; O99.343 Other mental disorders complicating pregnancy, third trimester; F32.9 Major depressive disorder, single episode, unspecified; Z3A.39 39 weeks gestation of pregnancy; Z87.891 Personal history of nicotine dependence; Z88.0 Allergy status to penicillin

== ENCOUNTER 2018-10-11 17:55 | Emergency (ER) | payer SELFPAY ==
--- NOTE | 2018-10-11 18:34 | RAD ---
EXAM: XR Right Knee, 1 or 2 views CLINICAL HISTORY: rt knee pain medial fall 2 d ago TECHNIQUE: Frontal and/or lateral views of the right knee. COMPARISON: No relevant prior studies available. FINDINGS: Limitations: None. Bones/joints: Unremarkable. No acute fracture. No dislocation. Soft tissues: Unremarkable. IMPRESSION: No acute findings. Electronically signed by: Keri Ojeda MD 10/11/2018 6:32 PM CDT
--- NOTE | 2018-10-11 18:38 | ED.PDOC ---
History of Present Illness - General Chief Complaint: Lower Extremity Injury Stated Complaint: RIGHT KNEE PAIN Time Seen by Provider: 10/11/18 18:15 Source: patient Exam Limitations: no limitations - History of Present Illness Initial Comments: the patient is a 27-year-old female presenting to the emergency room secondary to pain in her right knee after having fallen on 2 days ago accidentally. No real swelling. Pain is primarily to the medial aspect of the knee. No locking or popping. She is neurovascularly intact distally. No other injuries. No pain over the kneecap. Normal active and passive range of motion without weight. She is tender over the MCL. Negative anterior and posterior drawer signs. There is pain with inversion of the lower leg.the patient showed up here primarily because she needed a work note. Timing/Duration: other - day's Severity: moderate Improving Factors: immobilization Worsening Factors: movement Associated Symptoms: denies symptoms Allergies/Adverse Reactions: Allergies Penicillin G Allergy (Verified 10/25/17 11:43) Lucien Review of Systems - Review of Systems Constitutional: States: no symptoms reported EENTM: States: no symptoms reported Respiratory: States: no symptoms reported Cardiology: States: no symptoms reported Gastrointestinal/Abdominal: States: no symptoms reported Genitourinary: States: no symptoms reported Musculoskeletal: States: see HPI Skin: States: no symptoms reported Neurological: States: no symptoms reported Endocrine: States: no symptoms reported All other Systems: No Change from Baseline Past Medical History (General) - Patient Medical History Hx Seizures: No Hx Stroke: No Hx Dementia: No Hx Asthma: Yes Hx of COPD: No Hx Cardiac Disorders: No Hx Congestive Heart Failure: No Hx Pacemaker: No Hx Hypertension: Yes Hx Thyroid Disease: No Hx Diabetes: No Hx Gastroesophageal Reflux: Yes Hx Renal Disease: No Hx Cancer: No Hx of HIV: No Hx Hepatitis C: No Hx MRSA: No Surgical History: cholecystectomy - Vaccination History Hx Tetanus, Diphtheria Vaccination: Yes Hx Influenza Vaccination: Yes - 2017 Hx Pneumococcal Vaccination: No - Social History Hx Tobacco Use: Yes - Quit 2017 Hx Chewing Tobacco Use: No Hx Alcohol Use: No Hx Substance Use: No Hx Substance Use Treatment: No Hx Depression: Yes Hx Physical Abuse: No Hx Emotional Abuse: No Hx Suspected Abuse: No - Female History Hx Last Menstrual Period: 11/08/15 Patient : Yes Expected Date of Delivery:: 03/10/18 Hx Gestational Age: 39 Family Medical History - Family History Mother Family History: No Known Living Status: Still Living Hx Family Asthma: Yes Hx Family Hypertension: Yes Hx Cardiac Disease: Yes - dad Hx Family Diabetes: Yes - dad Physical Exam - Physical Exam General Appearance: Alert, Comfortable, No apparent distress Eye Exam: bilateral normal Ears, Nose, Throat: hearing grossly normal Neck: full range of motion, supple Respiratory: no respiratory distress, no accessory muscle use Cardiovascular/Chest: normal peripheral pulses, no edema Peripheral Pulses: dorsalis pedis,right: 2+, dorsalis pedis,left: 2+ Rectal Exam: deferred Extremity: normal range of motion, no pedal edema, no calf tenderness, normal capillary refill, other - see history of present illness Neurologic: production recorder II-XII nml as tested, no motor/sensory deficits, alert, normal mood/affect, oriented x 3 Skin Exam: normal color Comments: Vital Signs - 24 hr 10/11/18 18:00 Temperature 98.8 F Pulse Rate [ 86 left brachial] Respiratory 20 Rate Blood Pressure 107/61 [left brachial] O2 Sat by Pulse 96 Oximetry Progress - Progress Progress: 10/11/18 18:39 the patient is a 27-year-old female presenting to the emergency room secondary to having fallen on her right knee a couple of days ago. She appears to have sustained a MCL strain. She'll be placed in a knee immobilizer which she can ambulate with for the next week or 2. If symptoms are worsening or failing to improve over the next couple of weeks then an orthopedics evaluation may be warranted. X-ray of the knee here shows no evidence of any acute pathology. Motrin can be used for discomfort. ER warnings were given. Keep routine follow-up with primary care doctor. Departure - Departure Clinical Impression: Knee MCL sprain Qualifiers: Encounter type: initial encounter Laterality: right Qualified Code(s): S83.411A - Sprain of medial collateral ligament of right knee, initial encounter Disposition: Discharge to Home or Self Care Condition: Fair Departure Forms: ED Discharge - Pt. Copy, Patient Portal Self Enrollment Instructions: DI for Knee Pain Diet: regular diet Activity: increase activity as tolerated Referrals: Sari Gavin NP [Primary Care Provider] - 1-2 Weeks Additional Instructions: the patient is a 27-year-old female presenting to the emergency room secondary to having fallen on her right knee a couple of days ago. She appears to have sustained a MCL strain. She'll be placed in a knee immobilizer which she can ambulate with for the next week or 2. If symptoms are worsening or failing to improve over the next couple of weeks then an orthopedics evaluation may be warranted. X-ray of the knee here shows no evidence of any acute pathology. Motrin can be used for discomfort. ER warnings were given. Keep routine follow-up with primary care doctor.
[2018-10-11 19:02] VITALS: BP 104/84; TEMP 98.1; O2SAT 97
== END 2018-10-11 18:58 | disposition home or self-care (01) ==
LOC: ER 17:55
DX: S83.411A Sprain of medial collateral ligament of right knee, initial encounter (principal); J45.909 Unspecified asthma, uncomplicated; I10 Essential (primary) hypertension; K21.9 Gastro-esophageal reflux disease without esophagitis; F32.9 Major depressive disorder, single episode, unspecified; Z87.891 Personal history of nicotine dependence; Z88.0 Allergy status to penicillin; W17.89XA Other fall from one level to another, initial encounter; Y92.008 Other place in unspecified non-institutional (private) residence as the place of occurrence of the external cause

== ENCOUNTER 2019-11-14 19:09 | Emergency (ER) | payer SELFPAY ==
[2019-11-14] MEDS ORDERED: SODIUM CHLORIDE 0.9% 1000ML 1,000 ML IVS ONE (19:48)
[2019-11-14] MEDS ORDERED: ACETAMINOPHEN 500 MG TAB PO ONE (19:48)
[2019-11-14] MEDS ORDERED: MORPHINE SULFATE INJ 10 MG/ML VIAL IV ONE (19:48)
[2019-11-14] MEDS ORDERED: ONDANSETRON INJ 4 MG/2 ML VIAL IV ONE (19:48)
--- NOTE | 2019-11-14 19:56 | ED.PDOC ---
History of Present Illness - General Chief Complaint: Abdominal Pain Stated Complaint: Abd pain, Time Seen by Provider: 11/14/19 19:41 - History of Present Illness Initial Comments: 29 yo F no significant PMH PSxHx Cholecystectomy presents to ED c/o generalized abdominal pain and nausea x 1 day. Denies fever cough sob recent travel or contact with covid19. Denies fever chills admits nausea denies vomiting diarrhea chest pain sob diaphoresis. Admits decreased appetite and disturbed rest no change in bladder admits some pain while stooling denies drinking or smoking admits FH HTN DM. Has PMD for follow up no other c/o today. PPE worn-N95 surgical mask with attached face shield over N95 gloves and face shield over that Review of Systems - Review of Systems Constitutional: States: see HPI EENTM: States: see HPI Respiratory: States: see HPI Cardiology: States: see HPI Gastrointestinal/Abdominal: States: see HPI Genitourinary: States: see HPI Musculoskeletal: States: see HPI Skin: States: see HPI Neurological: States: see HPI Endocrine: States: see HPI All other Systems: Reviewed and Negative Past Medical History (General) - Patient Medical History Hx Seizures: No Hx Stroke: No Hx Dementia: No Hx Asthma: Yes Hx of COPD: No Hx Cardiac Disorders: No Hx Congestive Heart Failure: No Hx Pacemaker: No Hx Hypertension: Yes Hx Thyroid Disease: No Hx Diabetes: No Hx Gastroesophageal Reflux: Yes Hx Renal Disease: No Hx Cancer: No Hx of HIV: No Hx Hepatitis C: No Hx MRSA: No Surgical History: cholecystectomy - Vaccination History Hx Tetanus, Diphtheria Vaccination: Yes Hx Influenza Vaccination: Yes Hx Pneumococcal Vaccination: No Immunizations Up to Date: Yes - Social History Hx Tobacco Use: No Hx Chewing Tobacco Use: No Hx Alcohol Use: No Hx Substance Use: No Hx Substance Use Treatment: No Hx Depression: Yes Feels Threatened In Home Enviroment: No Feels Threatened In a Relationship: No Hx Physical Abuse: No Hx Emotional Abuse: No Hx Suspected Abuse: No - Activities of Daily Living Hospice Agency (if applicable):: None - Female History Patient is a Female of Child Bearing Age (10 -59 yrs old): No Hx Last Menstrual Period: 11/08/15 Patient : Yes Expected Date of Delivery:: 03/10/18 Hx Gestational Age: 39 Family Medical History - Family History Mother Family History: No Known Living Status: Still Living Hx Family Asthma: Yes Hx Family Hypertension: Yes Hx Cardiac Disease: Yes - dad Hx Family Diabetes: Yes - dad Physical Exam - Physical Exam General Appearance: No apparent distress Eyes, Ears, Nose, Throat Exam: normal ENT inspection Neck: non-tender, full range of motion Respiratory: no respiratory distress Cardiovascular/Chest: regular rate, rhythm Gastrointestinal/Abdominal: soft, tenderness - tenderness throughout Pelvic Exam: other - deferred Male Genitalia: other - n/a Rectal Exam: deferred Back Exam: normal inspection Extremity: normal range of motion, non-tender Neurologic: no motor/sensory deficits Skin Exam: normal color Progress - Progress Progress: 11/14/19 19:58 A/P-Abdominal Pain Nausea-iv bolus tylenol morphine zofran cbc cmp lipase ua uhcg cxr ct abdomen pelvis threat monitoring analyst pulse ox reassess - Results/Orders Results/Orders: Laboratory Tests 11/14/19 11/14/19 11/14/19 20:00 20:00 20:00 WBC 12.4 H RBC 4.79 Hgb 13.0 Hct 38.7 MCV 80.8 L MCH 27.2 MCHC 33.7 RDW 14.5 Plt Count 254 MPV 8.9 Absolute Neuts (auto) 8.10 H Absolute Lymphs (auto) 3.00 Absolute Monos (auto) 0.80 Absolute Eos (auto) 0.40 Absolute Basos (auto) 0.10 Neutrophils % 65.3 Lymphocytes % 24.3 Monocytes % 6.2 Eosinophils % 3.3 Basophils % 0.9 PT 9.9 INR 1.00 PTT (SP) 25.2 Sodium 140 Potassium 3.6 Chloride 107 Carbon Dioxide 22 Anion Gap 14.6 BUN 13 Creatinine 0.69 BUN/Creatinine Ratio 18.8 Random Glucose 96 Serum Osmolality 279.4 Lactic Acid Calcium 9.2 Total Bilirubin 0.4 AST 12 ALT 18 Alkaline Phosphatase 46 Serum Total Protein 7.1 Albumin 3.8 Globulin 3.3 Albumin/Globulin Ratio 1.2 Lipase 24 Serum HCG, Qual Urine Color Urine Appearance Urine pH Ur Specific [place] Urine Protein Urine Glucose (UA) Urine Ketones Urine Blood Urine Nitrite Urine Bilirubin Urine Urobilinogen Ur Leukocyte Esterase Urine RBC Urine WBC Ur Epithelial Cells Urine Bacteria Urine HCG, Qual 11/14/19 11/14/19 11/14/19 20:00 20:00 20:35 WBC RBC Hgb Hct MCV MCH MCHC RDW Plt Count MPV Absolute Neuts (auto) Absolute Lymphs (auto) Absolute Monos (auto) Absolute Eos (auto) Absolute Basos (auto) Neutrophils % Lymphocytes % Monocytes % Eosinophils % Basophils % PT INR PTT (SP) Sodium Potassium Chloride Carbon Dioxide Anion Gap BUN Creatinine BUN/Creatinine Ratio Random Glucose Serum Osmolality Lactic Acid 0.8 Calcium Total Bilirubin AST ALT Alkaline Phosphatase Serum Total Protein Albumin Globulin Albumin/Globulin Ratio Lipase Serum HCG, Qual Negative Urine Color Yellow Urine Appearance Sl cloudy Urine pH 5.5 Ur Specific [place] >= 1.030 Urine Protein Negative Urine Glucose (UA) Negative Urine Ketones Negative Urine Blood Small H Urine Nitrite Negative Urine Bilirubin Negative Urine Urobilinogen 0.2 Ur Leukocyte Esterase Negative Urine RBC 3-5 H Urine WBC 1-3 Ur Epithelial Cells 5-10 Urine Bacteria 0 Urine HCG, Qual Cancelled Hematuria, Leukocytosis XR CHEST 1 VIEW HISTORY: Abdominal pain. COMPARISON: 01/14/2017 FINDINGS: The heart size is within normal limits. There is no pulmonary vascular congestion. No consolidation, pleural effusion, or pneumothorax is seen. No acute bony findings are seen. IMPRESSION: No evidence of acute cardiopulmonary disease. Electronically signed by: Alhaji Garcia MD 11/14/2019 9:28 PM CDT - [id number] PROCEDURE: Abdomen/Pelvis w/Contrast CLINICAL HISTORY: pain vomiting TECHNIQUE: Contiguous axial images obtained through the abdomen and pelvis following the uneventful administration of IV contrast. Coronal and sagittal reformatted images were provided. This exam was performed according to our departmental dose-optimization program, which includes automated exposure control, adjustment of the mA and/or kV according to patient size and/or use of iterative reconstruction technique. COMPARISON: 01/14/2017 FINDINGS: Lung bases: Clear Liver: Unremarkable Gallbladder and biliary system: Interval cholecystectomy. Pancreas: Unremarkable Spleen: Unremarkable Adrenals: Unremarkable Kidneys: Normal renal cortical enhancement. Tiny calculi on the left. No hydronephrosis. Bowel: Thickening of the duodenal cap with mild surrounding inflammation and small adjacent lymph nodes. Moderate stool within the proximal to mid large bowel. No obstruction. Appendix: Normal caliber appendix. No findings to suggest acute appendicitis. Urinary bladder: Decompressed Reproductive: Unremarkable as visualized Lymph nodes: No pathologically enlarged lymph nodes. Peritoneum: No focal fluid collection. No free air. Vessels: No abdominal aortic aneurysm. Abdominal wall: Tiny fat- containing umbilical hernia. Bones: Mild multilevel spondylosis. No acute fracture. IMPRESSION: 1. Findings compatible with nonspecific duodenitis, potentially in the setting of underlying peptic ulcer disease. 2. Other findings as above. Electronically signed by: Mayo Swanson MD 11/14/2019 9:32 PM CDT On reassessment pt reports significant improvement in pain with ED treatment also reports she is on her menstrual cycle on this time. Will d/c tylenol ibuprofen zofran bactrim DS follow up pcp in the next 1-2 days strong return to ED precautions Departure - Departure Clinical Impression: Nausea Abdominal pain Qualifiers: Abdominal location: generalized Qualified Code(s): R10.84 - Generalized abdominal pain Hematuria Qualifiers: Hematuria type: unspecified type Qualified Code(s): R31.9 - Hematuria, unspecified Leukocytosis Qualifiers: Leukocytosis type: unspecified Qualified Code(s): D72.829 - Elevated white blood cell count, unspecified Time of Disposition: 21:41 Disposition: Discharge to Home or Self Care Condition: Good Departure Forms: ED Discharge - Pt. Copy, Patient Portal Self Enrollment Instructions: DI for Abdominal Pain-Adult Referrals: Zuleima Bhakta NP [Primary Care Provider] - 1-2 Days Prescriptions: Sulfa/Trimeth 800/160 (Ds) Tab [Bactrim DS] 1 tablet PO BID 10 Days #20 tablet Ibuprofen 600 mg PO Q6H PRN #20 tab PRN Reason: Pain Acetaminophen [Tylenol] 650 mg PO Q6H PRN #30 tab PRN Reason: Pain Ondansetron Tab [Zofran Tab] 4 mg PO TID PRN 5 Days #15 tab PRN Reason: Nausea Home Medications: Ambulatory Orders Omeprazole Magnesium [Omeprazole] 20 mg PO BID #30 tab 10/23/19 Acetaminophen [Tylenol] 650 mg PO Q6H PRN #30 tab 11/14/19 Ibuprofen 600 mg PO Q6H PRN #20 tab 11/14/19 Ondansetron Tab [Zofran Tab] 4 mg PO TID PRN 5 Days #15 tab 11/14/19 Sulfa/Trimeth 800/160 (Ds) Tab [Bactrim DS] 1 tablet PO BID 10 Days #20 tablet 11/14/19
[2019-11-14] MEDS ORDERED: SODIUM CHLORIDE 0.9% (FLUSH) 10 ML SYG ONE (20:12)
--- NOTE | 2019-11-14 21:30 | RAD ---
XR CHEST 1 VIEW HISTORY: Abdominal pain. COMPARISON: 01/14/2017 FINDINGS: The heart size is within normal limits. There is no pulmonary vascular congestion. No consolidation, pleural effusion, or pneumothorax is seen. No acute bony findings are seen. IMPRESSION: No evidence of acute cardiopulmonary disease. Electronically signed by: Alhaji Garcia MD 11/14/2019 9:28 PM CDT
--- NOTE | 2019-11-14 21:34 | CT ---
PROCEDURE: Abdomen/Pelvis w/Contrast CLINICAL HISTORY: pain vomiting TECHNIQUE: Contiguous axial images obtained through the abdomen and pelvis following the uneventful administration of IV contrast. Coronal and sagittal reformatted images were provided. This exam was performed according to our departmental dose-optimization program, which includes automated exposure control, adjustment of the mA and/or kV according to patient size and/or use of iterative reconstruction technique. COMPARISON: 01/14/2017 FINDINGS: Lung bases: Clear Liver: Unremarkable Gallbladder and biliary system: Interval cholecystectomy. Pancreas: Unremarkable Spleen: Unremarkable Adrenals: Unremarkable Kidneys: Normal renal cortical enhancement. Tiny calculi on the left. No hydronephrosis. Bowel: Thickening of the duodenal cap with mild surrounding inflammation and small adjacent lymph nodes. Moderate stool within the proximal to mid large bowel. No obstruction. Appendix: Normal caliber appendix. No findings to suggest acute appendicitis. Urinary bladder: Decompressed Reproductive: Unremarkable as visualized Lymph nodes: No pathologically enlarged lymph nodes. Peritoneum: No focal fluid collection. No free air. Vessels: No abdominal aortic aneurysm. Abdominal wall: Tiny fat-containing umbilical hernia. Bones: Mild multilevel spondylosis. No acute fracture. IMPRESSION: 1. Findings compatible with nonspecific duodenitis, potentially in the setting of underlying peptic ulcer disease. 2. Other findings as above. Electronically signed by: Mayo Swanson MD 11/14/2019 9:32 PM CDT
[2019-11-14 21:55] VITALS: BP 124/60; TEMP 97.2; O2SAT 98
== END 2019-11-14 21:55 | disposition home or self-care (01) ==
LOC: ER 19:09
DX: R10.84 Generalized abdominal pain (principal); R11.0 Nausea; R31.9 Hematuria, unspecified; D72.829 Elevated white blood cell count, unspecified; F32.9 Major depressive disorder, single episode, unspecified; K21.9 Gastro-esophageal reflux disease without esophagitis; Z90.49 Acquired absence of other specified parts of digestive tract; J45.909 Unspecified asthma, uncomplicated; I10 Essential (primary) hypertension
CPT/HCPCS: 36415; 71045; 74177; 80053; 81001; 83605; 83690; 84703; 85025; 85610; 85730; A4216; J2270; J2405; J7030